=== PATIENT | female | born 1970 | race Caucasian/White ===

== ENCOUNTER 2025-06-12 13:58 | Outpatient (OUT) | payer OTHER, SELFPAY ==
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
--- OUTSIDE RECORDS SUMMARY | 2025-06-12 14:02 | XMS_ITS | Clinical Summary ---
Author Organization [facility] Address [address] [place] [address] Phone Care Team Providers Care Quarter Doper Name Role Phone Unavailable Primary Care Provider Unavailabl e Social History Tobacco UseTypesPacks/DayYears UsedDateSmoking Tobacco: Never Assessed CommentsUnknownSex and Gender InformationValueDate RecordedSex Assigned at Not on fileLegal VcnTymckc84/26/2022 12:28 AM ESTGender IdentityNot on file Sexual OrientationNot on file Plan of Treatment Health MaintenanceDue DateLast DoneCommentsCT Tqiocklppkqm31/03/1970Colonoscopy 1969Colorectal Cancer Crvubwhra72/03/1970FIT-DNA (Cologuard)1969FIT 1969HIV Rlvpobuhx44/03/1970Lipid Panel1969 7369Dklhebjyhoerh96/03/1970 Yearly Adult Mjdrbjet63/03/1970MMR Vaccines (1 of 1 - Standard series)1970 Diabetes Kwmvtdwgq58/03/1988Hepatitis C Crzsxkqey66/03/1988Hepatitis B Vaccines (1 of 3 - 19+ 3-dose series)1988Cervical Cancer Nuejuzmhx72/03/1991 HPV/Snumxh3610/13/1990Pap Smear1990DTaP/Tdap/Td Vaccines (1 - Tdap) 10/14/19910751Dfjhxjfkx20/03/2010Pneumococcal Vaccine (1 of 1 - PCV)10/14/2019Zoster Vaccines (1 of 2)10/14/2019Influenza Vaccine (#1)5COVID-19 Vaccine (1 - season)2025HIB VaccinesAged OutNo longer eligible based on patient's age to complete this topicHPV VaccinesAged OutNo longer eligible based on patient's age to complete this topicHepatitis A VaccinesAged OutNo longer eligible based on patient's age to complete this topicIPV VaccinesAged OutNo longer eligible based on patient's age to complete this topicMeningococcal VaccineAged OutNo longer eligible based on patient's age to complete this topic Rotavirus VaccinesAged OutNo longer eligible based on patient's age to complete this topic Insurance
--- OUTSIDE RECORDS SUMMARY | 2025-06-12 14:02 | XMS_ITS | Clinical Summary ---
Author Organization [facility] Address [address] [place] [address] Care Team Providers Care Machine Sizer Name Role Phone Hernandez Barrera MD Primary Care Provider [phone] Allergies No known active allergies Medications MedicationSigDispense QuantityRefillsLast FilledStart DateEnd DateStatus gabapentin (Neurontin) 300 MG capsule Take 300 mg by mouth in the morning and 300 mg in the evening and 300 mg before bedtime.Active meloxicam (Mobic) 15 MG tablet Take 15 mg by mouth Daily08/17/2024tive levothyroxine (Synthroid, Levoxyl) 175 MCG tablet Indications:Postsurgical hypothyroidismTake 1 tablet (175 mcg) by mouth in the morning. Take before meals. 90 tablet 5008/14/2025ctive Active Problems ProblemNoted DateDiagnosed DatePostprocedural mjqctybtpkxrmd44/03/2025Malignant neoplasm of thyroid gland08/15/2024Vitamin D deficiency, nubkifbuxjo03/03/2025 Family History RelationNameStatusCommentsBrotherDeceasedFatherDeceasedMotherAliveSon 1AliveSon 2AliveSon 3Alive Social History Tobacco UseTypesPacks/DayYears UsedDateSmoking Tobacco: FormerCigarettes Smokeless Tobacco: Never Tobacco Cessation:Counseling Given: Not Answered Alcohol UseStandard Drinks/WeekCommentsNot Currently0 (1 standard drink = 0.6 oz pure alcohol)CommentsUnknownSex and Gender InformationValueDate Recorded Sex Assigned at BirthNot on fileLegal UtgJcgvyg30/15/2023 7:20 PM EDTGender IdentityNot on fileSexual OrientationNot on file Last Filed Vital Signs Vital SignReadingTime TakenCommentsBlood Pressure--Fcsrq690608/19/2024 9:39 AM EST Temperature--Respiratory Qipb468808/19/2024 9:39 AM ESTOxygen Sqfdjblgqa76% 08/19/2024 9:39 AM ESTInhaled Oxygen Concentration--Qghtrr18.7 kg (147 lb) 08/19/2024 9:39 AM PCEYwbogu757.1 cm (5' 5 )08/19/2024 9:39 AM ESTBody Mass Index24.46008/19/2024 9:39 AM EST Plan of Treatment DateTypeDepartmentCare Team (Latest Contact Info)Nernfqyfrfp72/06/2026 10:00 AM ESTOffice Visit [facility] [address] [place] [address] Hemanth Hill MD [address], [address] [place] [address] Health MaintenanceDue DateLast DoneCommentsCT Bocjwglpnyfe50/03/1970Colonoscopy 1969Colorectal Cancer Qfosedxrm00/03/1970FIT-DNA1969FIT1969 FOBT1969 4226Omwsflmjuhvqf85/03/1970Pap Smear1990Cervical Cancer Hwiljeuxp82/03/2000HPV/Ucqoox3910/14/19996344Qinpgwydn75/03/2010COVID-19 Vaccine ( season)/05/2021Influenza Vaccine (#1)/, 07/02/2021, 07/23/2019Pneumococcal Vaccine: Pediatrics (0 to 5 Years) and At- Risk Patients (6 to 64 Years)Aged OutNo longer eligible based on patient's age to complete this [place] [address] Care Teams Team MemberRelationshipSpecialtyStart DateEnd Hernandez Barrera MD [address] [place] [address] PCP - GeneralFamily Zorvmape63/13/23
--- OUTSIDE RECORDS SUMMARY | 2025-06-12 14:02 | XMS_ITS | Clinical Summary ---
Author Organization [facility] Address [address] [place] [address] Care Team Providers Care Undertaker Helper Name Role Phone Unavailable Primary Care Provider Unavailabl e Social History Tobacco UseTypesPacks/DayYears UsedDateSmoking Tobacco: Never Assessed CommentsUnknownSex and Gender InformationValueDate RecordedSex Assigned at Not on fileLegal QpdHluhnk88/30/2022 12:21 AM EDTGender IdentityNot on file Sexual OrientationNot on file Last Filed Vital Signs Vital SignReadingTime TakenCommentsBlood Pressure--Pulse--Temperature-- Respiratory Rate--Oxygen Saturation--Inhaled Oxygen Concentration--Loorjh07.7 kg (158 lb)07/15/2019 1:20 PM ONZNohcet361.1 cm (5' 5 )09/23/2019 1:36 PM EDTBody Mass Index26.29007/15/2019 1:20 PM EST Plan of Treatment Not on file
--- NOTE | 2025-06-12 14:04 | MM_ITS ---
Patient Name: TERRI GENTILE MR#: [id number] : 1970 Exam Date: 06/12/2025 Ordering Doctor: NON-STAFF PHYSICIAN RADIOLOGY REPORT PROCEDURE: MM TOMOSYNTHESIS SCREENING BI COMPARISON: MG MAMM SCREEN 3D POPPY CAD, 05/06/2022. MG MAMM SCREEN 3D POPPY CAD, 04/24/2021. INDICATIONS: Screening Calculator Name NCI Breast Cancer Risk Assessment Tool 5 Year Breast Cancer Risk Not Reported. Lifetime Breast Cancer Risk Not Reported. Personal Breast Cancer No Personal Ovarian Cancer No Treatments None Family Cancers None LOCATION: [facility] BREAST COMPOSITION: There are scattered areas of fibroglandular density. FINDINGS: RIGHT BREAST: No significant suspicious finding. There is a similar focal asymmetry. Benign-appearing calcifications are noted . LEFT BREAST: No significant suspicious finding. Benign-appearing calcifications are present. DIAGNOSTIC CATEGORY 2--BENIGN FINDING. NO CHANGE FROM COMPARISON. RECOMMENDATIONS: ROUTINE MAMMOGRAM AND CLINICAL EVALUATION IN 12 MONTHS. Dictated by: Lucien Perkins MD on 06/12/2025 at 15:39 Approved by: Lucien Perkins MD on 06/12/2025 at 15:59
== END 2025-06-12 13:59 | disposition home or self-care (01) ==
LOC: MAMMO 13:59
PROVIDERS: PCP Nurse Practitioner Family
DX: Z12.31 Encounter for screening mammogram for malignant neoplasm of breast (principal)
CPT/HCPCS: 77063; 77067

== ENCOUNTER 2025-07-12 14:22 | Outpatient (OUT) | payer OTHER, SELFPAY ==
--- OUTSIDE RECORDS SUMMARY | 2025-07-12 14:26 | XMS_ITS | Clinical Summary ---
Author Organization [facility] Address [address] [place] [address] Care Team Providers Care Aircraft Machinist Helper Name Role Phone Unavailable Primary Care Provider Unavailabl e Social History Tobacco UseTypesPacks/DayYears UsedDateSmoking Tobacco: Never Assessed CommentsUnknownSex and Gender InformationValueDate RecordedSex Assigned at Not on fileLegal AjuBefkwk72/30/2022 12:21 AM EDTGender IdentityNot on file Sexual OrientationNot on file Last Filed Vital Signs Vital SignReadingTime TakenCommentsBlood Pressure--Pulse--Temperature-- Respiratory Rate--Oxygen Saturation--Inhaled Oxygen Concentration--Zctpwb13.7 kg (158 lb)07/15/2019 1:20 PM MGCCajopm403.1 cm (5' 5 )09/23/2019 1:36 PM EDTBody Mass Index26.29007/15/2019 1:20 PM EST Plan of Treatment Not on file
--- OUTSIDE RECORDS SUMMARY | 2025-07-12 14:26 | XMS_ITS | Clinical Summary ---
Author Organization [facility] Address [id number] [address] [place] [address] Care Team Providers Care Electrician Locomotive Name Role Phone EdwardRaymundo borregoriya PARNELL-FRONT CLERK Primary Care Provide r Allergies No known active allergies Medications MedicationSigDispense QuantityRefillsLast FilledStart DateEnd DateStatus levothyroxine (SYNTHROID, LEVOTHROID) 137 MCG tablet Indications:Hypothyroidism (acquired)Take 1 tablet (137 mcg total) by mouth daily. 30 tablet 12/20/2019Active gabapentin (NEURONTIN) 300 mg capsule Take 1 capsule (300 mg total) by mouth 3 (three) times a day.Active ondansetron ODT (ZOFRAN ODT) 4 mg disintegrating tablet Dissolve 1 tablet (4 mg total) on tongue every 8 (eight) hours as needed for nausea for up to 10 doses. 10 tablet 2Active Active Problems ProblemNoted DateDiagnosed DateThyroid maseele6004/01/2017History of cancer 04/01/2017 Overview (04/01/2017): papillary Social History Tobacco UseTypesPacks/DayYears UsedDateSmoking Tobacco: NeverSmokeless Tobacco: NeverAlcohol UseStandard Drinks/WeekCommentsYes0 (1 standard drink = 0.6 oz pure alcohol)sociallyChildcareAnswerDate XxpblpiyRsqylkyhfKqdksye20/12/2019Employment AnswerDate OnvntllsRmeaqtvwqtCrmcvcp09/12/2019Hunger ScreeningAnswerDate RecordedWithin the past 12 months we worried whether our food would run out before we got money to buy more.Never True06/25/2022Within the past 12 months the food we bought just didn't last and we didn't have money to get more.Never True06/25/2022urpose - LifeAnswerDate RecordedPurpose and direction in life Pcwifez15/20/2021CommentsUnknownSex and Gender InformationValueDate RecordedSex Assigned at BirthNot on fileLegal JsjQaxayj29/06/2015 11:31 AM EDT Gender IdentityNot on fileSexual OrientationNot on file Last Filed Vital Signs Vital SignReadingTime TakenCommentsBlood Cuutewuq054/8406/25/2022 10:28 PM EST Zpsin786506/25/2022 10:28 PM WNGYkpttjjmacv55.2 ??C (99 ??F)06/25/2022 7:06 PM EST Respiratory Hguy367308/26/2021 10:28 PM ESTOxygen Pzppvtlfvd438%06/25/2022 10:28 PM ESTInhaled Oxygen Concentration--Hlscrz77.3 kg (144 lb)06/25/2022 7:06 PM EST Tacitu904.6 cm (5' 6 )06/25/2022 7:06 PM ESTBody Mass Index23.24108/26/2021 7:06 PM EST Plan of Treatment Health MaintenanceDue DateLast DoneCommentsDepression Kkhxwluiy07/03/1982Tobacco Efvqlfqsy86/03/1982DTaP,Tdap and Td Vaccines (1 - Tdap)1988Pap Smear 1990Zoster (Shingles) Vaccine (1 of 2)10/14/2019Adult BMI Screening 3COVID-19 Vaccine (2 - 2024- season)508/05/2021Influenza Ttvdmca130/, 07/02/2021, 07/23/2019, Additional history exists Medical Devices Not on file Insurance Care Teams Team MemberRelationshipSpecialtyStart DateEnd Date Allison Leon APRN-RAMIREZ [address] [place] [address] PCP - GeneralFamily Medicine08/01/20
--- OUTSIDE RECORDS SUMMARY | 2025-07-12 14:26 | XMS_ITS | Continuity of Care Document ---
Author Organization [facility] Address [address] [place] [address] Phone Care Team Providers Care Reproduction Specialist Name Role Phone Allison Leon [facility] Primary Care Provider Heidy Mcnamara APRN Attending Provider Care Teams Patient Care Team Team Status: Active Member Role/Relationship Status Dates Jacqueline Keenan MD Loss Control Technician Active [facility]LA[facility]PITALdylan Care ProviderActive Visit Care Team Team Status: Inactive Member Role/Relationship Status Dates Allison Leon [facility] Primary Care Provider Activ e Start: June 12, 2025 End: June 12, 2025Heidy Mcnamara APRN [employer]-CAttending ProviderActive Start: June 12, 2025 End: June [...] pain Other chronic pain painMeloxicam 15 mg tabletDiscontinued0.ROUTE.TFMSEKF621Ath 2024 7:14amJune 2024 6:54amTAKE 1 TABLET BY MOUTH ONCE DAILYMeloxicam 15 mg tablet Cagqkbxnnxzr70JBMFTxph26043Hdto 3rd, 2025 6:54amSeptember 2024 11:18am Gabapentin 300 mg fnwvwneKxbijl321DZOVJnjue times mqwcm033102Qyvrjn 2024 1:50pmChronic pain Other chronic pain painComplies with drug therapyMeloxicam 15 mg plhsxfHqfedj04XMXROwdt09225 March 16, 2025 11:17amComplies with drug therapyLevothyroxine 150 mcg AlxzcjoTwqzrzfqsxhe924QSEFGPwvxvIsyio 2017 11:00pmNovember 2020 2:09pmLevothyroxine 137 mcg hpwypeCyorfuhxgimv130NSGZYWyobmJnkakqjm 12th, 2021 12:00amJune 2023 9:13amhypothyroidMeloxicam 15 mg yyygikPlphuddxkyhw22QZQM DailyE[facility] 12:00am[facility]2020 10:10amarthritisGabapentin 300 mg jlgkjrjMwaiudlkzspj057LCARTxfox times dailyNov2020 12:00am November 03, 2023 1:21pmpainCalcium Carb,Gluc-Mag Gluc,Ox (Calcium Magnesium) 500 mg calcium -250 mg AzdrnwWqdtrsepgyhq4LMCVUVrblrVnnvcaxd 12th, 2021 12:00amMarch 2023 9:01amsupplementAcetaminophen 500 mg IzfkieVarlonfpvquz6219TURZX3A as needed for PainMay 24, 2021 12:00amMarch 2023 9:01amAspirin 81 mg Tablet,Delayed Release (Dr/Ec)Lsqhclllytja65RQKAFzgjp hjvfs23873CljudqraJuly 02, 2021 12:00amMarch 2023 9:01amHydroxyzine Pamoate 25 mg CapsuleDiscontinued 25MGPOEVERY 4-6 HOURS as needed for Muscle Touxz4YuebnmbeJuly 02, 2021 12:00am September 30, 2023 9:02amOxycodone-Acetaminophen (Percocet) 5-325 mg Tablet Discontinued1 - 2TABPOEVERY 4-6 HOURS as needed for Achd2235Yckjxlxl2020September 30, 2023 9:02amHistory of total right hip replacement Presence of right artificial hip jointLevothyroxine 175 mcg bcdhiekTigvjr249JVY PODailyJune 2023 11:00pmComplies with drug therapyIbuprofen 800 mg tablet Qjeypxipoqti971RJVBSoqdg times tsftf12312Tcaj 26th, 2024 11:00pmSeptember 2023 12:37pmPantoprazole (Protonix) 40 mg tablet,delayed release (DR/EC) Uiqtolzilsqe14HWMJFcyll09173Fexo 2023 11:00pmSeptember 2023 12:37pm Colchicine 0.6 mg tabletDiscontinued0.6MGPOTwice qctmt201334Rjzv 26th, 2024 11:00pmFebruary 2024 8:56amGabapentin 300 mg oefdtxlMvensgzrjkej230KKHY Three times gdjmd681133Sutnurmq 2024 4:10pmAugust 2024 1:50pmChronic pain Other chronic pain painMeloxicam 15 mg omrmqiUhuqumbmyiqt72KRXXSrvuq63490Cuicmwkp 2024 12:00am November 16, 2024 7:14am Immunizations Immunization Event Date Not Given Reason 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 Number 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 Lot Number Reason(s) Given Vaccine Information Statement (VIS) Detail Administration Location COVID-19 mRNA-1273 ([facility]) February 20, 2021 Quadrivalent [id number] Medical Equipment Device Date Implanted Device Details Acetabular shell July 01, 2021 CHITO: [id number] Issuing Agency: [facility] Device Id: [id number] Expiration Date: 2031-03-04 Lot Number: [id number] hip femur prosthesis, modularDecember 2020UDI: ()[id number] Issuing Agency: [facility] Device Id: [id number] Expiration Date: 2030-06-20 Lot Number: [id number] femoral head prosthesisDecember 2020UDI: ()[id number] Issuing Agency: [facility] Device Id: [id number] Expiration Date: 2028-07-16 Lot Number: [id number] head/stem prosthesis adaptorDecember 2020UDI: ()[id number] Issuing Agency: [facility] Device Id: [id number] Expiration Date: 2030-11-06 Lot Number: [id number]-imhsooldwwj polyethylene acetabular linerDecember 2020UDI: ()[id number] Issuing Agency: [facility] Device Id: [id number] Expiration Date: 2026-03-30 Lot Number: [id number] Vital Signs Vital Reading Result Reference Range Collection Date/Time Height 65 [in_i] June 12, 2025 1:59uyIbmjuh37.67 kgce2024 1:04pmBody Temperature 99 [degF]97.6-99.0cemb2024 1:04pmHeart Mmxw422 /vnb71-404Escfzgwv 1st, 2025 1:04pmOxygen saturation by Pulse rpeekhqn82 %95-100June 12, 2025 1:04pmBP Fxzbvohs369 mm[Hg]100-140Decemb2024 1:04pmBP Ptvolvjnp80 mm[Hg] 60-100December 2024 1:04pmBMI (Body Mass Index)24.4 kg/f1BrnxbrvwJune 12, 2025 1:04pm Advance Directives Advance Directive Response Recorded Date/ Time Advance Directives No September 28 018 10:17am Insurance Providers Guarantor Yonis Zambrano Address [address] [facility] [facility] [address]dns[place]i Info.Home Phone: Coverage Status Update:2024 Payer Group Member ID Coverage Type Subscriber Relationship to Subscriber Effective Date Expiration Date [employer]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 June 12, 2025 1:02pm June [...]
--- OUTSIDE RECORDS SUMMARY | 2025-07-12 14:26 | XMS_ITS | Clinical Summary ---
Author Organization [facility] Address [address] [place] [address] Phone Care Team Providers Care Electronic Train Control Technician Name Role Phone Unavailable Primary Care Provider Unavailabl e Social History Tobacco UseTypesPacks/DayYears UsedDateSmoking Tobacco: Never Assessed CommentsUnknownSex and Gender InformationValueDate RecordedSex Assigned at Not on fileLegal EbnVlxrdm94/26/2022 12:28 AM ESTGender IdentityNot on file Sexual OrientationNot on file Plan of Treatment Health MaintenanceDue DateLast DoneCommentsCT Qszsvxpustpl04/03/1970Colonoscopy 1969Colorectal Cancer Zdyjyeoui56/03/1970FIT-DNA (Cologuard)1969FIT 1969HIV Igxcelnko83/03/1970Lipid Panel1969 4913Ziftfxvboeckx68/03/1970 Yearly Adult Xuccqljw05/03/1970MMR Vaccines (1 of 1 - Standard series)1970 Hepatitis C Cqwonclbq00/03/1988Hepatitis B Vaccines (1 of 3 - 19+ 3-dose series) 1988Cervical Cancer Vtmpcchcz74/03/1991HPV/Reygrr2310/13/1990Pap Smear 1990DTaP/Tdap/Td Vaccines (1 - Tdap)10/14/19918867Ltvqcqanz94/03/2010 Pneumococcal Vaccine (1 of 1 - PCV)10/14/2019Zoster Vaccines (1 of 2)10/14/2019 COVID-19 Vaccine (1 - 2024- season)2025Influenza Vaccine (#1)2025 HIB VaccinesAged OutNo longer eligible based on patient's age to complete this topicHPV VaccinesAged OutNo longer eligible based on patient's age to complete this topicHepatitis A VaccinesAged OutNo longer eligible based on patient's age to complete this topicIPV VaccinesAged OutNo longer eligible based on patient's age to complete this topicMeningococcal VaccineAged OutNo longer eligible based on patient's age to complete this topicRotavirus VaccinesAged OutNo longer eligible based on patient's age to complete this topic Insurance
--- OUTSIDE RECORDS SUMMARY | 2025-07-12 14:26 | XMS_ITS | Clinical Summary ---
Author Organization [facility] Address [address] [place] [address] Care Team Providers Care Tower Operator Name Role Phone Hernandez Barrera MD Primary Care Provider [phone] Allergies No known active allergies Medications MedicationSigDispense [...] tablet 5008/14/2025ctive Active Problems ProblemNoted DateDiagnosed DatePostprocedural gomdamumcjcaxt75/03/2025Malignant neoplasm of thyroid gland08/15/2024Vitamin D deficiency, wdzifkugsez63/03/2025 Family History RelationNameStatusCommentsBrotherDeceasedFatherDeceasedMotherAliveSon 1AliveSon 2AliveSon 3Alive Social History Tobacco UseTypesPacks/DayYears UsedDateSmoking Tobacco: FormerCigarettes Smokeless Tobacco: Never Tobacco Cessation:Counseling Given: Not Answered Alcohol UseStandard Drinks/WeekCommentsNot Currently0 (1 standard drink = 0.6 oz pure alcohol)CommentsUnknownSex and Gender InformationValueDate Recorded Sex Assigned at BirthNot on fileLegal KzkUwumne35/15/2023 7:20 PM EDTGender IdentityNot on fileSexual OrientationNot on file Last Filed Vital Signs Vital SignReadingTime TakenCommentsBlood Pressure--Nftwh897008/19/2024 9:39 AM EST Temperature--Respiratory Npoy689508/19/2024 9:39 AM ESTOxygen Kowoyciblz42% 08/19/2024 9:39 AM ESTInhaled Oxygen Concentration--Pnkuzz69.7 kg (147 lb) 08/19/2024 9:39 AM FOOBnqvdv207.1 cm (5' 5 )08/19/2024 9:39 AM ESTBody Mass Index24.46008/19/2024 9:39 AM EST Plan of Treatment DateTypeDepartmentCare Team (Latest Contact Info)Oxaudkhnyzg95/06/2026 10:00 AM ESTOffice Visit [facility] [address] [place] [address] Hemanth Hill MD [address] [place] [address] Health MaintenanceDue DateLast DoneCommentsCT Xxeplyzjomub07/03/1970Colonoscopy 1969Colorectal Cancer Enrwnrcvh57/03/1970FIT-DNA1969FIT1969 FOBT1969 5761Nuhfnhfvprrur14/03/1970Pap Smear1990Cervical Cancer Qegkkdoun18/03/2000HPV/Hrpedx9510/14/19997556Aqelpdmdd84/03/2010Influenza Vaccine (#1) 510/, 07/02/2021, 07/23/2019Pneumococcal Vaccine: Pediatrics (0 to 5 Years) and At-Risk Patients (6 to 64 Years)Aged OutNo longer eligible based on patient's age to complete this topic Insurance Care Teams Team MemberRelationshipSpecialtyStart DateEnd Date Hernandez Barrera MD [address] [place] [address] PCP - GeneralFamily Sjcavzkx91/13/23
--- OUTSIDE RECORDS SUMMARY | 2025-07-12 14:26 | XMS_ITS | Clinical Summary ---
Author Organization [facility] Address [address], [address] [place] [address] Care Team Providers Care Is Support Analyst Name Role Phone Kendrick Flower APRN - HEALTH AND FITNESS PROFESSOR Primary Care Provid er Allergies No known active allergies Medications MedicationSigDispense QuantityRefillsLast FilledStart DateEnd DateStatus levothyroxine (SYNTHROID) 137 MCG tablet Take 1 tablet by mouth daily12/20/2019Active gabapentin (NEURONTIN) 300 MG capsule Take 1 capsule by mouth 3 times daily.Active tiZANidine (ZANAFLEX) 2 MG tablet Take 1 tablet by mouth 3 times daily as needed (back pain) 30 tablet 06/23/2023ctive Active Problems No known active problems Social History Tobacco UseTypesPacks/DayYears UsedDateSmoking Tobacco: Some DaysCigarettes Smokeless Tobacco: Never Tobacco Cessation:Ready to Q uit: Not Asked; Counseling Given: Not Answered Alcohol UseStandard Drinks/WeekCommentsNot Currently0 (1 standard drink = 0.6 oz pure alcohol)AUDIT-CAnswerDate RecordedQ1: How often do you have a drink containing alcohol?Never06/20/2023Q2: How many drinks containing alcohol do you have on a typical day when you are drinking?Patient does not drink06/20/2023Q3: How often do you have six or more drinks on one occasion?Never06/20/2023 CommentsNoSex and Gender InformationValueDate RecordedSex Assigned at BirthNot on fileLegal TyxGjvaiv77/03/2019 4:39 PM ESTGender IdentityNot on fileSexual OrientationNot on file Last Filed Vital Signs Vital SignReadingTime TakenCommentsBlood Lllqfhum589/9206/23/2023 11:40 AM EST Gnmhw631307/02/2023 10:02 AM QUXEzmmlyqxzbl64.7 ??C (98 ??F)07/02/2023 10:02 AM ESTRespiratory Zava154506/20/2023 8:45 PM ESTOxygen Imxibuolni13%07/02/2023 10:02 AM ESTInhaled Oxygen Concentration--Rrtozh63.1 kg (137 lb)07/02/2023 10:02 AM GSORhjlri974.1 cm (5' 5 )07/02/2023 10:02 AM ESTBody Mass Index22.8109/02/2022 10:02 AM EST Plan of Treatment Health MaintenanceDue DateLast DoneCommentsDepression Epvbts3110/13/1981HIV screen 1984Hepatitis C lygcnc5510/14/1987Hepatitis B vaccine (1 of 3 - 19+ 3-dose series)1988Pneumococcal 50+ years Vaccine (1 of 2 - PCV)1988Breast cancer hdjqot5710/13/20091212Rwxavf78/03/4718Ngvsmkogzgp17/03/2015Colorectal Cancer Imfzmy8310/13/2014FIT/FOBT: Average risk2014Fecal-DNA (Cologuard): Average risk2014Sigmoidoscopy/CT fmdkbsxprkir55/03/2015Shingles vaccine (1 of 2) 10/14/2019Flu vaccine (#1), 07/02/2021, 07/23/2019COVID-19 Vaccine ( - season)2025DTaP/Tdap/Td vaccine (2 - Td or Tdap) Hepatitis A vaccineAged OutNo longer eligible based on patient's age to complete this topicHib vaccineAged OutNo longer eligible based on patient's age to complete this topicMeningococcal (ACWY) vaccineAged OutNo longer eligible based on patient's age to complete this topicMeningococcal B vaccineAged OutNo longer eligible based on patient's age to complete this topic Polio vaccineAged OutNo longer eligible based on patient's age to complete this topic Insurance Care Teams Team MemberRelationshipSpecialtyStart DateEnd Date Kendrick Flower, SOHEILA - HEALTH AND FITNESS PROFESSOR [address] [place] [address] PCP - GeneralCertified Nurse Vannysuzvdyj28/12/23
[2025-07-12 15:15] LABS: Alanine Aminotransferase 21 U/L (14-59); Albumin Globulin Ratio 1.1; Albumin Level 4.1 g/dL (3.4-5.0); Alkaline Phosphatase 70 U/L (46-116); Anion Gap 14.4; Aspartate Amino Transferase 19 U/L (15-37); Blood Urea Nitrogen 17.0 mg/dL (7.0-18.0); Calcium 9.0 mg/dL (8.5-10.1); Carbon Dioxide 27.4 mmol/L (21.0-32.0); Chloride 101 mmol/L (98-107); Cholesterol 204 mg/dL (<=200); Estimated GFR (African America >60 (>=60 mL/min/1.73m^2); Estimated GFR (Non-African Ame >60 (>=60 mL/min/1.73m^2); Globulin 3.6 g/dL; Glucose 95 mg/dL (74-106); HDL Cholesterol 64 mg/dL (40-60); Potassium 3.8 mmol/L (3.5-5.1); Sodium 139 mmol/L (136-145); Total Protein 7.7 g/dL (6.4-8.2); Triglycerides 71 mg/dL (<=150); VLDL CHOLESTEROL 14.2 mg/dL
[2025-07-12 15:17] LABS: Hematocrit 42.4 % (36.0-48.0); Hemoglobin 14.4 g/dL (12.0-16.0); Immature Granulocytes Abs Auto 0.03 10^3/uL (0.00-0.03); Immature Granulocytes Pct Auto 0.4 % (0.0-0.5); Lymphocytes Absolute Auto 2.5 10^3/uL (1.2-3.8); Mean Corpuscular HGB Conc 34.0 g/dL (29.9-35.2); Mean Corpuscular Hemoglobin 31.3 pg (26.7-34.0); Mean Corpuscular Volume 92.2 fL (81.0-99.0); Platelet Count 288 10^3/uL (150-450); Red Blood Count 4.60 10^6/uL (4.20-5.40); White Blood Count 8.5 10^3/uL (4.0-11.0)
[2025-07-13 05:07] LABS: Vitamin B12 650 pg/mL (232-1245)
== END 2025-07-12 14:23 | disposition home or self-care (01) ==
PROVIDERS: PCP Nurse Practitioner Family; Visit Provider Nurse Practitioner Family
DX: Z00.00 Encounter for general adult medical examination without abnormal findings (principal); Z79.1 Long term (current) use of non-steroidal anti-inflammatories (NSAID); E53.8 Deficiency of other specified B group vitamins; E55.9 Vitamin D deficiency, unspecified
CPT/HCPCS: 36415; 80053; 80061; 82306; 82607; 85025